=== PATIENT | male | born 1980 | race Caucasian/White ===

== ENCOUNTER 2023-08-07 13:23 | Emergency (ER) | payer BC ==
[~2023-08-07] VITALS: Ht 182.9 cm; Wt 72.6 kg
[2023-08-07] MEDS ORDERED: LORA-259 PO (14:07)
[2023-08-07 14:15] VITALS: BP 140/92; TEMP 98.2; O2SAT 98
== END 2023-08-07 14:16 | disposition home or self-care (01) ==
LOC: ER 13:34
DX: F41.9 Anxiety disorder, unspecified (principal); G47.00 Insomnia, unspecified; G25.81 Restless legs syndrome